=== PATIENT | female | born 1960 | race Caucasian/White ===

== ENCOUNTER → 2019-01-23 | Outpatient (CLI) | payer MEDICARE ==
[2019-01-23 16:50] VITALS: BP 111/75; PULSE 81; RESP 16; TEMP 98; BMI 41.5
--- NOTE | 2019-01-23 22:30 | P.BASOAP ---
Subjective Progress Note Date: 01/23/19 Principal diagnosis: Morbid obesity For the last month the patient has had occasional vomiting with increased nighttime coughing. Believes she has 2.4 cc in her lap band. No pain. Objective - Vital Signs Vital signs: Vital Signs Temp 98 F 01/23/19 16:48 Pulse 81 01/23/19 16:48 Resp 16 01/23/19 16:48 BP 111/75 01/23/19 16:48 Pulse Ox Intake & Output 01/23/19 01/23/19 01/24/19 06:59 18:59 06:59 Weight 109.769 kg - Exam Abdomen: Soft, nontender, nondistended Assessment/Plan (1) Morbid obesity Narrative/Plan: Will anticipate the patient's band at this time. We'll following that obtain esophagram.The patient's lap band port was palpated. The site was aseptically prepped. The Nelson needle was advanced into the port. Aspiration took place. A total of 2.6 ml of fluid was Removed. Pressure was held and a sterile dressing was applied. Plan: Date: 01/23/19 Initial Weight: Initial BMI: Current Weight: 109.769 kg Current BMI: 41.5 Type of Surgery: Adjustable Gastric Banding Total Volume in Band: Previous Volume: Volume Removed: Volume Added: Band Size:
== END ==
LOC: BARWHC3 15:43
PROVIDERS: ATTEND Surgery
DX: E66.01 Morbid (severe) obesity due to excess calories (principal); Z68.41 Body mass index [BMI] 40.0-44.9, adult; Z98.84 Bariatric surgery status
CPT/HCPCS: 99212

== ENCOUNTER → 2019-02-08 | Outpatient (CLI) | payer MEDICARE ==
--- NOTE | 2019-02-08 13:51 | FL ---
GASTRIC BANDING ESOPHAGRAM CLINICAL HISTORY: Pain Gastric banding esophagram was performed. The patient ingested thin liquid barium without difficulty or delay. Gastric band is noted to be in place. I cannot exclude a degree of slippage. There is no evidence for leak or obstruction. IMPRESSION: I cannot exclude a degree of slippage. There is no evidence for leak or obstruction.
== END | disposition home or self-care (01) ==
LOC: RADUSWWP 10:54
PROVIDERS: ATTEND Surgery
DX: R13.10 Dysphagia, unspecified (principal); Z88.5 Allergy status to narcotic agent
CPT/HCPCS: 74220

== ENCOUNTER → 2019-05-29 | Outpatient (CLI) | payer MEDICARE ==
[2019-05-29 16:07] VITALS: BP 151/90; PULSE 92; TEMP 98.2; BMI 39.9
--- NOTE | 2019-05-29 16:12 | P.BASOAP ---
Subjective Progress Note Date: 05/29/19 Principal diagnosis: Morbid obesity Patient last seen in January. Patient's band was too tight at that time. 2.6 mL was removed. She had a subsequent esophagram. Dictation was read as possible slip however appears normal to me. Feels empty. No restriction. No nausea or vomiting. No reflux area no neck off. She is interested in a band adjustment. Objective - Vital Signs Vital signs: Vital Signs Temp 98.2 F 05/29/19 16:03 Pulse 92 05/29/19 16:03 Resp BP 151/90 05/29/19 16:03 Pulse Ox Intake & Output 05/28/19 05/29/19 05/29/19 18:59 06:59 18:59 Weight 126.099 kg - Exam Abdomen: Soft, nontender, nondistended Assessment/Plan (1) Morbid obesity Narrative/Plan: Patient interested in lap band adjustment. Will add 1.5 mL at this time. Follow-up in 1-2 months. Plan: Date: 05/29/19 Initial Weight: Initial BMI: Current Weight: 126.099 kg Current BMI: 39.9 Type of Surgery: Total Volume in Band: 3.7 Previous Volume: Volume Removed: Volume Added: 1.1 Band Size:
== END | disposition home or self-care (01) ==
LOC: BARWHC3 13:48
PROVIDERS: ATTEND Surgery
DX: Z46.51 Encounter for fitting and adjustment of gastric lap band (principal); E66.01 Morbid (severe) obesity due to excess calories; Z68.39 Body mass index [BMI] 39.0-39.9, adult
CPT/HCPCS: 99212

== ENCOUNTER → 2019-09-25 | Outpatient (CLI) | payer MEDICARE ==
[2019-09-25 15:10] VITALS: BP 138/89; PULSE 80; TEMP 98.2; BMI 39.0
--- NOTE | 2019-09-25 16:21 | P.BASOAP ---
Subjective Progress Note Date: 09/25/19 Principal diagnosis: Morbid obesity Patient here today requesting a band adjustment. Currently has 1.5 mL in her band. She was too tight at 2.6 mL. No nausea or vomiting. No regurgitation. No heartburn. She has lost 6 pounds since last visit. Objective - Vital Signs Vital signs: Vital Signs Temp 98.2 F 09/25/19 15:05 Pulse 80 09/25/19 15:05 Resp BP 138/89 09/25/19 15:05 Pulse Ox Intake & Output 09/24/19 09/25/19 09/25/19 18:59 06:59 18:59 Weight 123.377 kg - Exam Abdomen: Soft, nontender, nondistended Assessment/Plan (1) Morbid obesity Narrative/Plan: Patient interested in lap band adjustment. We'll add 0.7 mL. Currently now has 2.2 mL. Upper GI if the patient is interested in further addition of fluid. Plan: Date: 09/25/19 Initial Weight: Initial BMI: Current Weight: 123.377 kg Current BMI: 39.0 Type of Surgery: Total Volume in Band: 2.2 Previous Volume: Volume Removed: Volume Added: 0.7 Band Size:
== END | disposition home or self-care (01) ==
LOC: BARWHC3 14:53
PROVIDERS: ATTEND Surgery
DX: Z46.51 Encounter for fitting and adjustment of gastric lap band (principal); E66.01 Morbid (severe) obesity due to excess calories; Z68.39 Body mass index [BMI] 39.0-39.9, adult
CPT/HCPCS: 99212

== ENCOUNTER → 2020-03-11 | Outpatient (CLI) | payer MEDICARE ==
[2020-03-11 14:27] LABS: Potassium 3.8 mmol/L (3.5-5.1)
[2020-03-11 14:28] LABS: Albumin 4.1 g/dL (3.5-5.0); Calcium 9.1 mg/dL (8.4-10.2); Total Bilirubin 0.4 mg/dL (0.2-1.3)
[2020-03-11 14:34] LABS: Basophils # (A) 0.1 k/uL (0-0.2); Basophils % (A) 2 %; Eosinophils # (A) 0.2 k/uL (0-0.7); Eosinophils % (A) 2 %; HCT 42.5 % (34.0-46.0); HGB 14.2 gm/dL (11.4-16.0); Lymphocytes # (A) 2.6 k/uL (1.0-4.8); Lymphocytes % (A) 34 %; MCH 29.3 pg (25.0-35.0); MCHC 33.4 g/dL (31.0-37.0); MCV 87.8 fL (80.0-100.0); Mean Platelet Volume 7.6; Monocytes # (A) 0.3 k/uL (0-1.0); Monocytes % (A) 5 %; Neutrophils # (A) 4.3 k/uL (1.3-7.7); Neutrophils % (A) 56 %; Platelet Count 256 k/uL (150-450); RBC 4.84 m/uL (3.80-5.40); RDW 14.4 % (11.5-15.5); WBC 7.6 k/uL (3.8-10.6)
== END | disposition home or self-care (01) ==
LOC: LABPAT 12:20
PROVIDERS: ATTEND Surgery
DX: Z01.818 Encounter for other preprocedural examination (principal)
CPT/HCPCS: 36415; 80053; 85025; 93005

== ENCOUNTER → 2020-03-11 | Outpatient (CLI) | payer MEDICARE ==
[2020-03-11 12:21] VITALS: BP 117/82; PULSE 79; RESP 16; TEMP 98.2; BMI 33.5
--- NOTE | 2020-03-11 12:37 | P.BASOAP ---
Subjective Progress Note Date: 03/11/20 Principal diagnosis: Morbid obesity Patient returns to the clinic. She was last seen in September. Previously she was too tight at 2.6 mL. At the last visit her band was filled up to 2.2 mL. On the last few months patient has had progressive dysphagia and heartburn. Some night cough and nighttime reflux. Patient is requesting the band being empty. Patient is also having upper abdominal pain at times. She is interested in band removal. Objective - Vital Signs Vital signs: Vital Signs Temp 98.2 F 03/11/20 12:19 Pulse 79 03/11/20 12:19 Resp 16 03/11/20 12:19 BP 117/82 03/11/20 12:19 Pulse Ox Intake & Output 03/10/20 03/11/20 03/11/20 18:59 06:59 18:59 Weight 106.141 kg - Exam Abdomen: Soft, nontender, nondistended Assessment/Plan (1) Morbid obesity Narrative/Plan: Patient with worsening reflux and dysphagia. Will empty band. Patient with ongoing abdominal pain. We are having a difficult time finding a appropriate volume of fluid for the patient's band without symptoms. I do support band removal at this time given her increased abdominal discomfort and nighttime ref lux. This would be considered medically necessary. The patient's lap band port was palpated. The site was aseptically prepped. The Nelson needle was advanced into the port. A total of 2.2 ml of fluid was removed. Pressure was held and a sterile dressing was applied. Plan: Date: 03/11/20 Initial Weight: 106.141 kg Initial BMI: 33.5 Current Weight: 106.141 kg Current BMI: 33.5 Type of Surgery: Total Volume in Band: 0 Previous Volume: 2.2 Volume Removed: 2.2 Volume Added: 0 Band Size:
== END | disposition home or self-care (01) ==
LOC: BARWHC3 11:40
PROVIDERS: ATTEND Surgery
DX: E66.01 Morbid (severe) obesity due to excess calories (principal); Z68.33 Body mass index [BMI] 33.0-33.9, adult
CPT/HCPCS: 99212

== ENCOUNTER 2020-05-12 08:50 | Day surgery (SDC) | payer MEDICARE ==
[2020-05-02 12:35] VITALS: BMI 34.4
--- NOTE | 2020-05-12 07:47 | P.GSHP ---
History of Present Illness H&P Date: 05/12/20 Chief Complaint: Dysphagia, vomiting 59-year-old female known to our service. Patient with history of lap band placement. Her band was emptied earlier this year. Despite that patient still having issues with dysphagia, heartburn, and intermittent vomiting. Mild upper abdominal pain as well at times. Here today for lap band removal. Past Medical History Past Medical History: Cancer, COPD, Fibromyalgia, GERD/Reflux, Hyperlipidemia, Hypertension, Memory Impairment, Osteoarthritis (OA) Additional Past Medical History / Comment(s): OVARIAN AND CERVICAL CANCER, short term memory issues from work related head injury >10 yrs. ago, some cervical neuralgia History of Any Multi-Drug Resistant Organisms: None Reported Past Surgical History: Adenoidectomy, Appendectomy, Back Surgery, Bariatric Surgery, Cholecystectomy, Hysterectomy, Tonsillectomy Additional Past Surgical History / Comment(s): LAP band, pain procedures Past Anesthesia/Blood Transfusion Reactions: No Reported Reaction Smoking Status: Never smoker - Past Family History Mother Family Medical History: Coronary Artery Disease (CAD), Diabetes Mellitus Father Family Medical History: Coronary Artery Disease (CAD) Sister(s) Family Medical History: Deep Vein Thrombosis (DVT) Medications and Allergies Home Medications Medication Instructions Recorded Confirmed Type amLODIPine BESYLATE [Amlodipine 10 mg PO HS 12/02/14 05/02/20 History Besylate] FLUoxetine HCL [PROzac] 20 mg PO HS 12/10/14 05/02/20 History ARIPiprazole [Abilify] 20 mg PO HS 05/02/20 05/02/20 History Albuterol Inhaler [Ventolin Hfa 2 puff INHALATION RT-QID PRN 05/02/20 05/02/20 History Inhaler] Atorvastatin [Lipitor] 20 mg PO HS 05/02/20 05/02/20 History Gabapentin [Neurontin] 100 mg PO BID 05/02/20 05/02/20 History Ibuprofen [Motrin] 800 mg PO Q8H 05/02/20 05/02/20 History LORazepam [Ativan] 1 mg PO HS 05/02/20 05/02/20 History Montelukast Sodium [Singulair] 10 mg PO HS 05/02/20 05/02/20 History Omeprazole [PriLOSEC] 20 mg PO AC-BID 05/02/20 05/02/20 History Topiramate [Topamax] 25 mg PO HS 05/02/20 05/02/20 History Allergies Allergy/AdvReac Type Severity Reaction Status Date / Time codeine Allergy Rash/Hives Verified 05/02/20 12:27 Surgical - Exam Physical exam: General: Well-developed, well-nourished HEENT: Normocephalic, sclerae nonicteric Abdomen: Nontender, nondistended Extremities: No edema Neuro: Alert and oriented Assessment and Plan (1) GERD (gastroesophageal reflux disease) Narrative/Plan: 5-year-old female with lap band intolerance. We'll proceed with lap band removal at this time. Risks of bleeding, infection, scarring, perforation, conversion to an open procedure, persistent dysphagia or heartburn discussed. She understands and wishes to proceed. Status: Acute Code(s): K21.9 - GASTRO-ESOPHAGEAL REFLUX DISEASE WITHOUT ESOPHAGITIS SNOMED Code(s): 772300104
[~2020-05-12 08:50] MED LIST: DEXAMETHASONE SOD PHOSPHATE 4 MG/ML 1 ML VIAL IV ONE; LACTATED RINGERS 1,000 ML IV SCH; MIDAZOLAM 2 MG/2 ML VIAL IV PRN; SCOPOLAMINE 1.5MG/72HR PATCH TRANSDERM ONE
[2020-05-12 09:13] VITALS: RESP 16
[2020-05-12] MEDS ORDERED: LIDOCAINE 1% (10MG/ML) FOR IV START INTRADERMA ONE (09:33)
[2020-05-12] MEDS: ONDANSETRON 4 MG/2 ML VIAL IVP ONE ×2 (09:33→11:39)
[2020-05-12] MEDS ORDERED: HEPARIN SODIUM,PORCINE 5,000 UNIT/ML 1 ML VIAL ONE (09:40)
[2020-05-12] MEDS ORDERED: HEPARIN SODIUM,PORCINE 5,000 UNIT/ML 1 ML VIAL SQ ONE (09:43)
[2020-05-12] MEDS ORDERED: LIDOCAINE 1% INJ 10MG/ML (20 ML MDV) ONE (10:04)
[2020-05-12] MEDS ORDERED: SUCCINYLCHOLINE CHLORIDE 100 MG/5 ML SYR IV ONE (10:04)
[2020-05-12] MEDS ORDERED: MIDAZOLAM 2 MG/2 ML VIAL ONE (10:04)
[2020-05-12] MEDS ORDERED: ROCURONIUM 10 MG/ML (10 ML VIAL) IV ONE (10:04)
[2020-05-12] MEDS ORDERED: fentaNYL (PF) 50 MCG/ML 2 ML AMP ONE (10:04)
[2020-05-12] MEDS ORDERED: PROPOFOL 10 MG/ML 20 ML VIAL IV ONE (10:04)
[2020-05-12] MEDS ORDERED: GLYCOPYRROLATE 0.2 MG/ML 2 ML VIAL ONE (10:04)
[2020-05-12] MEDS ORDERED: HYDROmorphone (PF) 1 MG/ML ONE (10:04)
[2020-05-12] MEDS ORDERED: NEOSTIGMINE 1 MG/ML 10 ML VIAL ONE (10:04)
[2020-05-12] MEDS ORDERED: BUPIVACAINE (PF) 0.25% 30 ML VIAL SQ ONE (10:07)
[2020-05-12] MEDS ORDERED: HYDROcodone/APAP 5-325MG 1 EACH TAB PO PRN (11:11)
[2020-05-12] MEDS ORDERED: NALOXONE 0.4 MG/ML 1 ML VIAL IV PRN (11:11)
[2020-05-12 11:18] VITALS: TEMP 97.8
--- NOTE | 2020-05-12 11:18 | P.OP ---
Date of Procedure: 05/12/20 Procedure(s) Performed: PREOPERATIVE DIAGNOSIS: Band intolerance/abdominal pain POSTOPERATIVE DIAGNOSIS: Same PROCEDURE: Laparoscopic lap band removal SURGEON: Kimberley EBL: Minimal ANESTHESIA: General COMPLICATIONS: None OPERATIVE PROCEDURE: The patient was brought and placed on the operating room table in the supine position. The patient was placed under general anesthesia at that time. The patient was then placed in lithotomy. The abdomen was prepped and draped in the usual sterile fashion. An incision was made overlying the palpable port after localizing with anesthesia. The port was easily excised using electrocautery. Entrance into the peritoneal cavity occurred using a 5 mm optical trocar through the old trocar entrance site. Insufflation took place to 15 mmHg. A right subxiphoid 5 mm trocar was placed. This was then removed and the medium Lucas hook was used to elevate the left lobe of the liver anteriorly. An additional 5 mm trocar was placed under direct visualization in the left lateral upper quadrant. The original 5 mm trocar was switched to a 15 mm trocar. A additional 5 mm trocar was placed in the right upper quadrant under direct dilatation. There were adhesions to the band in the buccal that were lysed using both the LigaSure and electrocautery. The band was then cut using the laparoscopic rossi. The band was then removed easily in 2 portions through the 15 mm trocar site. The stomach itself was inspected and revealed no evidence of erosion or prolapse. The trochars were removed. The fascia at the 15 mm site was closed using a [id number] 0 Vicryl stitch. The subcutaneous tissues at the port site was closed using a 3-0 Vicryl suture. The skin at all 4 incision sites were closed using 4-0 Monocryl sutures. Skin glue and sterile dressings were then applied. DISPOSITION: Stable to recovery room
[2020-05-12] MEDS: fentaNYL (PF) 50 MCG/ML 2 ML AMP IV PRN ×2 (11:39→11:49)
[2020-05-12] MEDS ORDERED: KETOROLAC 15 MG/ML 1 ML VIAL IVP ONE (11:39)
[2020-05-12 12:34] VITALS: BP 131/89; PULSE 87
== END 2020-05-12 13:02 | disposition home or self-care (01) ==
LOC: OR 08:50
PROVIDERS: ATTEND Surgery
DX: K95.09 Other complications of gastric band procedure (principal); R10.9 Unspecified abdominal pain; K66.0 Peritoneal adhesions (postprocedural) (postinfection); J44.9 Chronic obstructive pulmonary disease, unspecified; M79.7 Fibromyalgia; K21.9 Gastro-esophageal reflux disease without esophagitis; E78.5 Hyperlipidemia, unspecified; I10 Essential (primary) hypertension; R41.3 Other amnesia; Z87.891 Personal history of nicotine dependence; E66.9 Obesity, unspecified; Z68.38 Body mass index [BMI] 38.0-38.9, adult; M19.90 Unspecified osteoarthritis, unspecified site; Z85.41 Personal history of malignant neoplasm of cervix uteri; Z85.43 Personal history of malignant neoplasm of ovary; G58.8 Other specified mononeuropathies; Z90.49 Acquired absence of other specified parts of digestive tract; Z90.710 Acquired absence of both cervix and uterus; Z98.890 Other specified postprocedural states; Z90.89 Acquired absence of other organs; Z90.09 Acquired absence of other part of head and neck; Z82.49 Family history of ischemic heart disease and other diseases of the circulatory system; Z83.3 Family history of diabetes mellitus; Z79.1 Long term (current) use of non-steroidal anti-inflammatories (NSAID); Z79.899 Other long term (current) drug therapy; Z88.5 Allergy status to narcotic agent
CPT/HCPCS: 43774; J2250; J1644; J1100; J2710; J0690; J2405; J2001; J3010; J1170; J1885; J0330; J2704